=== PATIENT | female | born 1985 | race Two or more races ===

== ENCOUNTER 2023-10-22 09:08 | Outpatient (CLI) | payer OTHER | END 2023-10-22 09:14 | disposition home or self-care (01) | LOC: RX STUDY 09:08 | PROVIDERS: ATTEND Obstetrics & Gynecology Reproductive Endocrinology | DX: N70.11 Chronic salpingitis (principal) ==

== ENCOUNTER 2025-02-17 10:52 | Inpatient (IN) | payer OTHER ==
[~2025-02-17] VITALS: Ht 160 cm; Wt 68.0 kg
[2025-03-07 11:27] VITALS: BP 101/67
[2025-03-07] MEDS ORDERED: PRENATABS RX T1 EACH PO (11:45)
[2025-03-07] MEDS ORDERED: SYNTHROID137 MCG PO (11:48)
[2025-03-07] MEDS ORDERED: SYNTHROID125 MCG PO (11:49)
[2025-03-07 12:21] LABS: BASO % 0.3 % (0.1-1.2); EOS # 0.05 (0.04-0.54); EOS % 0.6 % (0.7-7.0); HEMATOCRIT 37.6 % (34.1-44.9); HEMOGLOBIN 12.8 g/dL (11.2-15.7); LYMPH # 1.28 (1.18-3.74); LYMPH % 14.9 % (19.3-53.1); MONO # 0.61 (0.24-0.82); MONO % 7.1 % (4.7-12.5); NEUT # 6.55 (1.56-6.13); NEUT % 76.4 % (34.0-71.1); PLATELET COUNT 246 K/uL (163-369); RED BLOOD COUNT 4.13 M/uL (3.93-5.22); RED CELL DISTRIBUTION WIDTH 14.9 % (11.6-14.4)
[2025-03-07 12:43] LABS: INR < 0.93; PARTIAL THROMBOPLASTIN TIME 26.2 SECONDS (22.0-34.0); PROTHROMBIN TIME 9.8 SECONDS (9.0-11.5)
[2025-03-07 12:58] LABS: BILIRUBIN TOTAL 0.52 mg/dL (0.3-1.2); CALCIUM 9.4 mg/dL (8.5-10.1); CREATININE SERUM 0.53 mg/dL (0.55-1.02); GFR 129.1; GLOBULINA 3.9 G/DL (2.4-3.5); POTASSIUM 4.07 mEq/L (3.5-5.1); TOTAL PROTEIN 6.9 gm/dL (6.4-8.2)
[2025-03-07 15:15] VITALS: BP 89/60
[2025-03-07] MEDS ORDERED: MORPHINE SULFATE 4 MG/ML CARTRIDGE IV PRN (15:15)
[2025-03-07 19:01] VITALS: BP 104/68
[2025-03-07] MEDS ORDERED: MISOPROSTOL 25 MCG TABLET ONE (20:25)
[2025-03-07] MEDS ORDERED: MISOPROSTOL 25 MCG TABLET VAG ONE (21:00)
[2025-03-07 23:24] VITALS: BP 109/70
[2025-03-08] VITALS (7 sets, daily range): BP systolic 95–110; BP diastolic 58–74; O2SAT 98
[2025-03-08] MEDS ORDERED: FAMOTIDINE/PF 20 MG/2 ML VIAL ONE (02:17)
[2025-03-08] MEDS ORDERED: FAMOTIDINE/PF 20 MG/2 ML VIAL IV PRN (02:30)
[2025-03-08] MEDS ORDERED: CHLORHEXIDINE GLUCONATE 120 ML BOTTLE TOP ONE (05:46)
[2025-03-08] MEDS ORDERED: ERYTHROMYCIN BASE OPHT 1GM EACH TUBE OP ONE (05:46)
[2025-03-08] MEDS ORDERED: OXYTOCIN 20 UNITS/1000ML RL PIGGYBAG IV ONE (05:46)
[2025-03-08] MEDS ORDERED: LIDOCAINE HCL 1% 10ML VIAL ONE (05:47)
[2025-03-08] MEDS ORDERED: LEVOTHYROXINE SODIUM 125 MCG TABLET PO SCH (06:00)
[2025-03-08] MEDS ORDERED: CHLORHEXIDINE GLUCONATE 120 ML BOTTLE TOP SCH (07:30)
[2025-03-08] MEDS ORDERED: OXYTOCIN 1,000 ML IV ONE (07:30)
[2025-03-08] MEDS ORDERED: PNV,CALCIUM 72/IRON/FOLIC ACID 1 TAB TABLET PO SCH (09:00)
[2025-03-08] MEDS ORDERED: DOCUSATE SODIUM 100MG CAP PO SCH (09:00)
[2025-03-08] MEDS ORDERED: ACETAMINOPHEN 500 MG GEL..CAP PO SCH (12:00)
[2025-03-09 00:41] VITALS: BP 100/61
[2025-03-09 06:23] LABS: BASO % 0.3 % (0.1-1.2); EOS % 0.9 % (0.7-7.0); HEMATOCRIT 32.2 % (34.1-44.9); HEMOGLOBIN 10.8 g/dL (11.2-15.7); LYMPH # 1.84 (1.18-3.74); LYMPH % 16.3 % (19.3-53.1); MEAN CORPUSCULAR HEMOGLOBIN 30.6 pg (25.6-32.2); MONO # 0.74 (0.24-0.82); MONO % 6.5 % (4.7-12.5); NEUT # 8.57 (1.56-6.13); NEUT % 75.6 % (34.0-71.1); PLATELET COUNT 196 K/uL (163-369); RED BLOOD COUNT 3.53 M/uL (3.93-5.22)
[2025-03-09 08:37] VITALS: BP 103/70; O2SAT 98
[2025-03-09 13:22] VITALS: BP 98/61; O2SAT 98
[2025-03-09 16:00] VITALS: BP 102/66; O2SAT 96
[2025-03-09 20:00] VITALS: BP 104/69
[2025-03-10 01:34] VITALS: BP 105/64
[2025-03-10 09:22] VITALS: BP 105/70
== END 2025-03-10 14:38 | disposition home or self-care (01) | DRG 807 ==
LOC: LDR 03-07 11:12 → OB/GYN 03-08 07:41
PROVIDERS: Obstetrics & Gynecology Gynecology; ADMIT Obstetrics & Gynecology; ATTEND Obstetrics & Gynecology
PROC: 3E0P7VZ Introduction of Hormone into Female Reproductive, Via Natural or Artificial Opening (ICD-10-PCS; 2025-03-07)
PROC: 4A1HXCZ Monitoring of Products of Conception, Cardiac Rate, External Approach (ICD-10-PCS; 2025-03-07)
PROC: 10E0XZZ Delivery of Products of Conception, External Approach (ICD-10-PCS; principal; 2025-03-08)
PROC: 0KQM0ZZ Repair Perineum Muscle, Open Approach (ICD-10-PCS; 2025-03-08)
PROC: 3E033VJ Introduction of Other Hormone into Peripheral Vein, Percutaneous Approach (ICD-10-PCS; 2025-03-08)
DX: O70.1 Second degree perineal laceration during delivery (principal); Z37.0 Single live birth; Z3A.39 39 weeks gestation of pregnancy